=== PATIENT | male | born 1995 | race Caucasian/White ===

== ENCOUNTER 2022-07-31 16:50 | Emergency (ER) | payer BC ==
[2022-07-31 17:32] LABS: CHLORIDE,CL 103 mEq/L (98-106); SODIUM,NA 142 mEq/L (136-145)
[2022-07-31 17:33] LABS: ESTIMATED GFR 123 mL/min (>=60)
[2022-07-31 17:34] LABS: AMPHETAMINES,URINE NEGATIVE (NEGATIVE); BARBITURATES,URINE NEGATIVE (NEGATIVE); BENZODIAZEPINE,URINE POSITIVE (NEGATIVE); MDMA (ECSTASY), URINE NEGATIVE (NEGATIVE); METHADONE,URINE NEGATIVE (NEGATIVE); METHAMPHETAMINES,URINE NEGATIVE (NEGATIVE); OPIATES,URINE NEGATIVE (NEGATIVE); OXYCODONE,URINE NEGATIVE (NEGATIVE); PHENCYCLIDINE,URINE NEGATIVE (NEGATIVE); TCA,URINE NEGATIVE (NEGATIVE)
[2022-07-31] MEDS ORDERED: Iopamidol 755 Mg/ML 100 ML Bottle IVPUSH ONE (17:45)
== END 2022-07-31 19:42 | disposition home or self-care (01) ==
LOC: CC.ED 16:50
DX: F13.229 Sedative, hypnotic or anxiolytic dependence with intoxication, unspecified (principal); S01.21XA Laceration without foreign body of nose, initial encounter
CPT/HCPCS: 36415; 70450; 71250; 72125; 74177; 80053; 80305; 80307; 81003; 83735; 85025; 99284; 99285; Q9967